=== PATIENT | male | born 1970 | race Caucasian/White ===

== ENCOUNTER 2022-02-03 16:32 | Emergency (ER) | payer BC ==
[2022-02-03 17:21] VITALS: RESP 18; TEMP 98.1
[2022-02-03] MEDS ORDERED: SODIUM CHLORIDE 0.9% 1,000 ML IV STA (21:00)
[2022-02-03] MEDS ORDERED: ONDANSETRON 4 MG/2 ML VIAL IVP STA (21:00)
[2022-02-03] MEDS ORDERED: HYDROmorphone 0.5 MG/0.5 ML SYRINGE IVP STA ×2 (21:00→23:03)
--- NOTE | 2022-02-03 21:14 | ED ---
Back Pain HPI - General Chief Complaint: Back Pain/Injury Stated Complaint: Abd pain Time Seen by Provider: 02/03/22 20:53 Source: patient, family, RN notes reviewed Limitations: no limitations - History of Present Illness Initial Comments: This is a 52-year-old male who presents emergency department for a kidney stone. Patient had a computed tomography scan earlier today ordered by his PCP for possible kidney stone, which revealed a 7 mm obstructing left ureteral stone. Pain is in the left flank and left lower quadrant, and has been present for 2 days. The pain occurs in waves, and when it does occur, he is curled up on the floor with nausea and vomiting. His primary care provider saw him yesterday and did start him on tramadol and Flomax. He states that he believes the Flomax was helping, however he has had no improvement with the tramadol. Patient and his request admission for lithotripsy management. MD Complaint: back pain (left flank) - Related Data Home Medications Medication Instructions Recorded Confirmed Escitalopram [Lexapro] 10 mg PO HS 02/03/22 02/03/22 Tamsulosin HCl [Flomax] 0.4 mg PO HS 02/03/22 02/03/22 traMADol HCl [Ultram] 50 mg PO BID 02/03/22 02/03/22 valACYclovir HCL [Valtrex] 1,000 mg PO HS 02/03/22 02/03/22 Previous Rx's Medication Instructions Recorded HYDROcodone/APAP 7.5-325MG [[place] 1 tab PO Q6HR PRN 3 Days #12 tab 02/03/22 7.5-325] Naproxen 500 mg PO BID PRN #20 tablet 02/03/22 Ondansetron Odt [Zofran Odt] 4 mg PO Q8HR PRN #20 tab 02/03/22 Allergies Allergy/AdvReac Type Severity Reaction Status Date / Time No Known Allergies Allergy Verified 02/03/22 22:04 Review of Systems ROS Statement: Those systems with pertinent positive or pertinent negative responses have been documented in the HPI. ROS Other: All systems not noted in ROS Statement are negative. Constitutional: Denies: fever, chills ENT: Denies: ear pain, throat pain Respiratory: Denies: cough, dyspnea Cardiovascular: Denies: chest pain, palpitations Gastrointestinal: Reports: abdominal pain, nausea, vomiting. Denies: diarrhea, constipation Genitourinary: Denies: urgency, dysuria Musculoskeletal: Reports: back pain Skin: Denies: rash Neurological: Denies: headache Past Medical History Additional Past Medical History / Comment(s): kidney stones History of Any Multi-Drug Resistant Organisms: None Reported Past Surgical History: No Surgical Hx Reported Past Psychological History: No Psychological Hx Reported Smoking Status: Never smoker Past Alcohol Use History: None Reported Past Drug Use History: None Reported General Exam Limitations: no limitations General appearance: alert, in no apparent distress Head exam: Present: atraumatic, normocephalic, normal inspection Respiratory exam: Present: normal lung sounds bilaterally. Absent: respiratory distress, wheezes, rales, rhonchi, stridor Cardiovascular Exam: Present: regular rate, normal rhythm, normal heart sounds. Absent: systolic murmur, diastolic murmur, rubs, gallop, clicks GI/Abdominal exam: Present: soft, normal bowel sounds. Absent: distended, tenderness, guarding, rebound, rigid Back exam: Present: CVA tenderness (L). Absent: CVA tenderness (R) Neurological exam: Present: alert, oriented X3, CN II-XII intact Psychiatric exam: Present: normal affect, normal mood Skin exam: Present: warm, dry, intact, normal color. Absent: rash Course Vital Signs 02/03/22 02/03/22 17:19 21:20 Temperature 98.1 F Pulse Rate 78 75 Respiratory 18 18 Rate Blood Pressure 132/85 129/77 O2 Sat by Pulse 99 99 Oximetry Medical Decision Making - Medical Decision Making This is a 52-year-old male who presents emergency department for an obstructing ureteral calculus. Calculus measures 7mm based on computed tomography scan obtained earlier today. Patient advised that he has approximately a 50% chance of passing this on its own, and given that it is in the distal ureter, he is close to passing this. Discussed case with Dr. Ash, who advised controlling patient's symptoms in the emergency department and discharging him home for outpatient follow up with urology, as they can do lithotripsy in the office. Discussed this with the patient and his , who are agreeable to this plan. Symptoms controlled with Zofran, Toradol, and Dilaudid in the emergency Depart ment. Given that the pharmacies are closed, will send patient home with a starter pack for Zofran, ibuprofen, and Tylenol #3. Rx for [place], naproxen, and Zofran and sent to the pharmacy to warehouse picker tomorrow. He is instructed to avoid taking naproxen and ibuprofen at the same time, and to decide which one works best for him. He will contact urology tomorrow for an outpatient appointment. Urine strainer sent home with the patient as well. Return precautions reviewed in depth, the patient is instructed to return to the emergency department with any new, worsening, or concerning symptoms. Patient verbalized understanding. This case was discussed in detail with the attending ED physician. Presentation, findings, and treatment plan discussed in detail as well. - Lab Data Result diagrams: 02/03/22 21:00 02/03/22 21:00 Lab Results 02/03/22 02/03/22 02/03/22 Range/Units 21:00 21:00 21:00 WBC 10.6 (3.8-10.6) k/uL RBC 4.72 (4.30-5.90) m/uL Hgb 14.5 (13.0-17.5) gm/dL Hct 44.2 (39.0-53.0) % MCV 93.8 (80.0-100.0) fL MCH 30.8 (25.0-35.0) pg MCHC 32.9 (31.0-37.0) g/dL RDW 12.9 (11.5-15.5) % Plt Count 266 (150-450) k/uL MPV 6.8 Neutrophils % 76 % Lymphocytes % 16 % Monocytes % 5 % Eosinophils % 1 % Basophils % 0 % Neutrophils # 8.1 H (1.3-7.7) k/uL Lymphocytes # 1.7 (1.0-4.8) k/uL Monocytes # 0.5 (0-1.0) k/uL Eosinophils # 0.1 (0-0.7) k/uL Basophils # 0.0 (0-0.2) k/uL Sodium 140 (137-145) mmol/L Potassium 4.4 (3.5-5.1) mmol/L Chloride 103 (98-107) mmol/L Carbon Dioxide 27 (22-30) mmol/L Anion Gap 10 mmol/L BUN 15 (9-20) mg/dL Creatinine 0.93 (0.66-1.25) mg/dL Est GFR (CKD-EPI)AfAm >90 (>60 ml/min/1.73 sqM) Est GFR (CKD-EPI)NonAf >90 (>60 ml/min/1.73 sqM) Glucose 101 H (74-99) mg/dL Calcium 9.6 (8.4-10.2) mg/dL Total Bilirubin 0.7 (0.2-1.3) mg/dL AST 32 (17-59) U/L ALT 26 (4-49) U/L Alkaline Phosphatase 72 (38-126) U/L Total Protein 8.3 H (6.3-8.2) g/dL Albumin 4.8 (3.5-5.0) g/dL Urine Color Light Yellow Urine Appearance Clear (Clear) Urine pH 5.5 (5.0-8.0) Ur Specific [place] 1.010 (1.001-1.035) Urine Protein Negative (Negative) Urine Glucose (UA) Negative (Negative) Urine Ketones Trace H (Negative) Urine Blood Moderate H (Negative) Urine Nitrite Negative (Negative) Urine Bilirubin Negative (Negative) Urine Urobilinogen <2.0 (<2.0) mg/dL Ur Leukocyte Esterase Negative (Negative) Urine RBC 3 (0-5) /hpf Urine WBC 3 (0-5) /hpf Urine Mucus Rare H (None) /hpf - Radiology Data Radiology results: report reviewed, image reviewed Disposition Clinical Impression: Renal calculus, left, Hydronephrosis concurrent with and due to calculi of kidney and ureter Disposition: HOME SELF-CARE Instructions (If sedation given, give patient instructions): Kidney Stones (ED), Renal Colic (ED), How to Strain Your Urine (ED) Additional Instructions: Return to the emergency department with any new, worsening, or concerning symptoms. Contact urology in the morning for outpatient follow-up. Take the [place] every 4-6 hours as needed for pain. Take the naproxen twice daily for pain. Take the Zofran as needed for nausea and vomiting. Prescriptions: Naproxen 500 mg PO BID PRN #20 tablet PRN Reason: Pain HYDROcodone/APAP 7.5-325MG [[place] 7.5-325] 1 tab PO Q6HR PRN 3 Days #12 tab PRN Reason: Pain Ondansetron Odt [Zofran Odt] 4 mg PO Q8HR PRN #20 tab PRN Reason: Nausea And Vomiting Is patient prescribed a controlled substance at d/c from ED?: Yes If prescribed controlled substance>3 days was MAPS reviewed?: Prescribed <3 Days Referrals: Roger Sam DO [Primary Care Provider] - 1-2 days Timoteo Irvin MD [STAFF PHYSICIAN] - 1-2 days
[2022-02-03] MEDS ORDERED: TAMSULOSIN 0.4 MG CAP.ER.24H PO STA (21:17)
[2022-02-03 22:02] LABS: ALT 26 U/L (4-49); AST 32 U/L (17-59); African American GFR (CKD) >90 (>60 ml/min/1.73 sqM); Albumin 4.8 g/dL (3.5-5.0); Alkaline Phosphatase 72 U/L (38-126); Anion Gap 10 mmol/L; Blood Urea Nitrogen 15 mg/dL (9-20); Calcium 9.6 mg/dL (8.4-10.2); Carbon Dioxide 27 mmol/L (22-30); Chloride 103 mmol/L (98-107); Glucose 101 mg/dL (74-99); Non-African American GFR(CKD) >90 (>60 ml/min/1.73 sqM); Potassium 4.4 mmol/L (3.5-5.1); Sodium 140 mmol/L (137-145); Total Bilirubin 0.7 mg/dL (0.2-1.3); Total Protein 8.3 g/dL (6.3-8.2)
[2022-02-03 22:08] LABS: Appearance,Urine Clear (Clear); Bilirubin,Urine Negative (Negative); Blood,Urine Moderate (Negative); Color,Urine Light Yellow; Glucose,Urine (UA) Negative (Negative); Ketones,Urine Trace (Negative); Leukocyte Esterase,Urine Negative (Negative); Mucus,Urine Rare /hpf; Nitrite,Urine Negative (Negative); PH, Urine 5.5 (5.0-8.0); Protein,Urine Negative (Negative); RBC,Urine 3 /hpf (0-5); Urobilinogen,Urine <2.0 mg/dL (<2.0); WBC,Urine 3 /hpf (0-5)
[2022-02-03 22:10] LABS: Basophils % (A) 0 %; Eosinophils # (A) 0.1 k/uL (0-0.7); Eosinophils % (A) 1 %; HCT 44.2 % (39.0-53.0); HGB 14.5 gm/dL (13.0-17.5); Lymphocytes # (A) 1.7 k/uL (1.0-4.8); Lymphocytes % (A) 16 %; MCH 30.8 pg (25.0-35.0); MCHC 32.9 g/dL (31.0-37.0); MCV 93.8 fL (80.0-100.0); Mean Platelet Volume 6.8; Monocytes # (A) 0.5 k/uL (0-1.0); Monocytes % (A) 5 %; Neutrophils # (A) 8.1 k/uL (1.3-7.7); Neutrophils % (A) 76 %; Platelet Count 266 k/uL (150-450); RBC 4.72 m/uL (4.30-5.90); RDW 12.9 % (11.5-15.5); WBC 10.6 k/uL (3.8-10.6)
[2022-02-03] MEDS ORDERED: IBUPROFEN 600 MG STARTER PACK 4 TAB BTL PO STA (22:47)
[2022-02-03] MEDS ORDERED: ONDANSETRON 4 MG ODT STARTER PACK 2 TAB BTL PO STA (22:47)
[2022-02-03] MEDS ORDERED: ACET/COD 300 MG/30 MG STARTER PACK 6 TAB BTL PO STA (22:47)
[2022-02-03] MEDS ORDERED: KETOROLAC 15 MG/ML 1 ML VIAL IVP STA (22:49)
[2022-02-03 23:05] VITALS: BP 129/77; PULSE 75
== END 2022-02-03 23:14 | disposition home or self-care (01) ==
LOC: EC 16:32
DX: N13.2 Hydronephrosis with renal and ureteral calculous obstruction (principal)
CPT/HCPCS: 36415; 80053; 85025; 81001; 96375; 96361; 99284; 96374; J2405; J1885; S0119; J1170

== ENCOUNTER → 2022-02-03 | Outpatient (CLI) | payer BC ==
--- NOTE | 2022-02-03 16:05 | CT ---
EXAMINATION TYPE: CT abdomen pelvis wo con DATE OF EXAM: 02/03/2022 COMPARISON: CT dated 06/06/2014 HISTORY: Left lower quadrant pain and Hematuria CT DLP: 881 mGycm Automated exposure control for dose reduction was used. TECHNIQUE: Helical acquisition of images was performed from the lung bases through the pelvis. FINDINGS: LUNG BASES: No significant abnormality is appreciated. LIVER/GB: No significant abnormality is appreciated. PANCREAS: No significant abnormality is seen. SPLEEN: No significant abnormality is seen. ADRENALS: No significant abnormality is seen. KIDNEYS: 7 mm obstructing stone is seen at the most inferior aspect of the left ureter just proximal to the left uterovesical junction, causing moderate left-sided hydroureter and hydronephrosis. Associ ated left perinephric and periureteric fat stranding. Scattered bilateral nonobstructing renal calcul i measuring up to 5.4 mm at the midpole of the left kidney. No right-sided hydroureter or hydronephro sis. Right medial renal cyst measuring up to 5.1 cm without gross suspicious feature. The urinary chino dder is not completely distended. Unremarkable prostate and seminal vesicles. FREE AIR: No free air is visualized RETROPERITONEAL ADENOPATHY: None visualized PELVIC ADENOPATHY: None visualized. OSSEOUS STRUCTURES: Questionable osteopenia. No gross aggressive bone lesion. BOWEL: Unremarkable nondistended stomach, duodenum and small bowel. Scattered uncomplicated colonic diverticulosis. Normal appendix. OTHER: No sizable ascites. Fat-containing umbilical hernia. Small bilateral fat-containing inguinal h ernias. IMPRESSION: Left distal ureteric 7 mm obstructing stone as detailed above. Associated infection cannot be exclude d, please correlate clinically and with urinalysis results. Other scattered bilateral nonobstructing renal calculi as detailed above. Further urology consultatio n can be considered. Other incidental findings as described above.
== END | disposition home or self-care (01) ==
LOC: RADCTMAIN 15:25
PROVIDERS: ATTEND Family Medicine
DX: N20.2 Calculus of kidney with calculus of ureter (principal)
CPT/HCPCS: 74176

== ENCOUNTER 2022-02-05 06:23 | Day surgery (SDC) | payer BC ==
--- NOTE | 2022-02-04 18:09 | P.HPIHPCON ---
History of Present Illness H&P Date: 02/04/22 This is a 52-year-old male with history of a 7 mm left-sided ureteral stone, and multiple nonobstructive stones. Ge is symptomatic from her stone. Option of ureteroscopy with holmium laser, versus ESWL versus medical expulsive therapy were discussed in detail. Patient was quite symptomatic, and wanted to proceed with surgical intervention, He agreed to proceed with Left-sided ureteroscopy with holmium laser. Discussed with her the risk which includes but not limited to bleeding, infection, injury to the ureter. Discussed also with her risk from anesthesia. He understood all the risk and agreed to proceed Consent for Procedure: I have explained the operation/procedure to the patient, including the risks, benefits, side effects, alternative therapies (including not receiving the proposed treatment or service), the likelihood of the patient achieving his/her goals, and potential recuperation problems for the procedure/sedation/analgesia, as well as any blood products, if indicated. I also explained to the patient the risks, benefits and side effects of the alternatives, as well as the risks related to not receiving the proposed procedure, care, treatment, or services. Past Medical History Additional Past Medical History / Comment(s): kidney stones History of Any Multi-Drug Resistant Organisms: None Reported Past Surgical History: No Surgical Hx Reported Past Psychological History: No Psychological Hx Reported Smoking Status: Never smoker Past Alcohol Use History: None Reported Past Drug Use History: None Reported Medications and Allergies Home Medications Medication Instructions Recorded Confirmed Type Escitalopram [Lexapro] 10 mg PO HS 02/03/22 02/03/22 History HYDROcodone/APAP 7.5-325MG [[place] 1 tab PO Q6HR PRN 3 Days #12 tab 02/03/22 Rx 7.5-325] Naproxen 500 mg PO BID PRN #20 tablet 02/03/22 Rx Ondansetron Odt [Zofran Odt] 4 mg PO Q8HR PRN #20 tab 02/03/22 Rx Tamsulosin HCl [Flomax] 0.4 mg PO HS 02/03/22 02/03/22 History traMADol HCl [Ultram] 50 mg PO BID 02/03/22 02/03/22 History valACYclovir HCL [Valtrex] 1,000 mg PO HS 02/03/22 02/03/22 History Allergies Allergy/AdvReac Type Severity Reaction Status Date / Time No Known Allergies Allergy Verified 02/03/22 22:04 Surgical - Exam - General no distress, moderate pain - Eyes normal ocular movement, no pale - ENT normal nares, normal mucosa - Respiratory normal expansion, normal respiratory effort - Abdomen Abdomen: soft, non tender - Psychiatric oriented to time, oriented to person, oriented to place Assessment and Plan Assessment: OR for left-sided ureteroscopy with holmium laser lithotripsy, stone basketing and stent insertion
--- NOTE | 2022-02-05 09:55 | XR ---
EXAMINATION TYPE: XR KUB DATE OF EXAM: 02/05/2022 Comparison: 06/06/[address] 02/03/2022 Clinical History: 52-year-old male N20.0 calculus Findings: Single mildly dilated small bowel loop left midabdomen probably transient measuring up to 4.2 cm. The re is a 7 mm calcification in the left side of the pelvis. Unchanged phlebolith in the right side of the pelvis. Faint calcification suggested in the left side of the abdomen measuring up to 6 mm. Mild to moderate stool in the right side of the abdomen. Air extends distally to the rectum. Impression: Redemonstrated 7 mm distal left ureteral calculus. A solitary dilated small bowel loop in the left mi d abdomen measuring 4.2 cm may reflect a regional ileus adjacent to the left kidney. Additional nonob structive left renal calculi measuring up to 6 mm.
[2022-02-05] MEDS ORDERED: LACTATED RINGERS 1,000 ML IV ONE ×2 (10:32→12:00)
[2022-02-05] MEDS ORDERED: ONDANSETRON 4 MG/2 ML VIAL ONE (10:43)
[2022-02-05] MEDS ORDERED: ONDANSETRON 4 MG/2 ML VIAL IVP ONE (11:01)
[2022-02-05] MEDS ORDERED: DEXAMETHASONE SOD PHOSPHATE 4 MG/ML 1 ML VIAL IVP ONE (11:02)
[2022-02-05] MEDS ORDERED: MIDAZOLAM 2 MG/2 ML VIAL IVP ONE (11:05)
[2022-02-05] MEDS ORDERED: PROPOFOL 10 MG/ML 20 ML VIAL IV ONE (11:11)
[2022-02-05] MEDS ORDERED: fentaNYL (PF) 50 MCG/ML 2 ML AMP ONE (11:11)
[2022-02-05] MEDS ORDERED: LIDOCAINE 2% INJ 20 MG/ML (2 ML VIAL) ONE (11:11)
[2022-02-05] MEDS ORDERED: ePHEDrine 50 MG/ML 1 ML VIAL ONE (11:11)
[2022-02-05] MEDS ORDERED: KETOROLAC 15 MG/ML 1 ML VIAL IVP ONE (12:40)
--- NOTE | 2022-02-05 12:41 | P.OP ---
Date of Procedure: 02/05/22 Preoperative Diagnosis: Left ureteral stone, renal stones Postoperative Diagnosis: Same Procedure(s) Performed: Cystoscopy, left ureteroscopy, holmium laser lithotripsy, stone basketing and stent insertion Implants: 6-[place] by 26 cm stent in the left ureter left on a string Anesthesia: [facility] Surgeon: Timoteo Irvin Estimated Blood Loss (ml): 5 Pathology: none sent Condition: stable Disposition: PACU Indications for Procedure: This is a 52-year-old male with history of a 7 mm left-sided ureteral stone, and multiple nonobstructive stones. He is symptomatic from her stone. Option of ureteroscopy with holmium laser, versus ESWL versus medical expulsive therapy were discussed in detail. Patient was quite symptomatic, and wanted to proceed with surgical intervention, He agreed to proceed with Left-sided ureteroscopy with holmium laser. Discussed with her the risk which includes but not limited to bleeding, infection, injury to the ureter. Discussed also with her risk from anesthesia. He understood all the risk and agreed to proceed Operative Findings: Left distal ureteral stone, multiple stones in the kidney, Description of Procedure: Patient brought to the operating room, general anesthesia was induced. He was prepped and draped in sterile fashion a placement dorsal lithotomy position. Cystoscopy fitted with 21-[place] sheath was inserted per urethra, cystoscopy was performed which showed no abnormality within the bladder. Attention was then carried to the left ureteral orifice which was intubated with a sensor wire. Next the semirigid ureteroscope was inserted per urethra, and advanced up the left ureteral orifice. A large stone was encountered in the distal ureter. Using the holmium laser the stone was fragmented into small fragments, sizable fragments were removed using the stone basket. At this time the ureteroscope was advanced all the way up to the mid ureter which showed no additional stones or injury to the ureter. Pullback ureteroscopy was performed which showed no sizable fragments or injury to the ureter. As the ureteroscope was withdrawn and a sensor wire was advanced through. Next a 1214 [place] access sheath was passed over the wire and into the proximal ureter. A flexible ureteroscope was advanced through the access sheath, renoscopy was performed which showed a large stone in the lower pole, an additional stone in the mid pole. Using the holmium laser the stones were fragmented into small fragments, sizable fragments were removed using the stone basket. Repeat renoscopy showed no sizable stones or injury to the kidney. Pullback ureteroscopy was performed which showed no ureteral stones or injury to ureter. As the ureteroscope was withdrawn and a sensor wire was advanced through. Next a ureteral stent was passed over the w shante, the proximal curl was visualized on fluoroscopy and distal curl was visualized using cystoscope. The bladder was emptied at the end of the case. The stent was left on a string and taped to the patient penis. Patient tolerated procedure well taken to recovery in stable condition [place] Report: Procedure Acuity: Stone Size and Location: 7 mm left distal ureter, stone in mid and lower pole Ureteral Dilation: no Ureteral Access Sheath Used: Yes Stone Sent for Analysis: yes All Stones/Fragments Were Removed with a Basket: yes Complications: No Preoperative Antibiotics Given: Yes Stent Placed: Yes If Stent Placed, Was String Left Attached: Yes If Stent Placed, When is it to be Removed: Office Discharge Medications: Toradol, flomax
[2022-02-05] MEDS ORDERED: HYDROmorphone 0.5 MG/0.5 ML SYRINGE IVP ONE ×2 (12:45→13:15)
[2022-02-05 12:46] VITALS: TEMP 97
[2022-02-05 12:48] VITALS: RESP 16
[2022-02-05 13:52] VITALS: BP 137/91; PULSE 76
--- NOTE | 2022-02-05 20:07 | FL ---
EXAMINATION TYPE: FL guidance operating room DATE OF EXAM: 02/05/2022 FLUOROSCOPY Fluoroscopy time of 20 seconds was used during urologic procedure for left ureteral stone.. 1 image/ s document/s the procedure.
== END 2022-02-05 14:21 | disposition home or self-care (01) ==
LOC: OR 06:23
PROVIDERS: ATTEND Urology
DX: N20.1 Calculus of ureter (principal); N20.0 Calculus of kidney; K21.9 Gastro-esophageal reflux disease without esophagitis; Z79.899 Other long term (current) drug therapy
CPT/HCPCS: 82365; 74018; 52356; C2625; C1894; C1769; J2250; J1100; J2405; J3010; J1885; J2704; J1170; J2001

== ENCOUNTER → 2022-03-05 | Outpatient (CLI) | payer BC ==
--- NOTE | 2022-03-05 15:42 | XR ---
EXAMINATION TYPE: XR KUB DATE OF EXAM: 03/05/2022 COMPARISON: 02/05/2022 INDICATION: Renal calculus post lithotripsy TECHNIQUE: Single view abdomen spine view FINDINGS: There is a normal bowel gas pattern. Psoas margins are normal. No suspicious renal or ureteral stones are evident. IMPRESSION: 1. Unremarkable Abdomen
== END | disposition home or self-care (01) ==
LOC: RADXRMAIN 15:00
PROVIDERS: ATTEND Urology
DX: N20.0 Calculus of kidney (principal)
CPT/HCPCS: 74018

== ENCOUNTER → 2023-05-13 | Outpatient (CLI) | payer BC ==
--- NOTE | 2023-05-13 15:26 | XR ---
EXAMINATION TYPE: XR chest 2V DATE OF EXAM: 05/13/2023 3:06 PM COMPARISON: None TECHNIQUE: XR chest 2V Frontal and lateral views of the chest. CLINICAL INDICATION:Male, 53 years old with history of [id number] CHEST PAIN,SOB; FINDINGS: Lungs/Pleura: Trace left pleural effusion with associated atelectasis. No focal consolidation or pneu mothorax. Pulmonary vascularity: Unremarkable. Heart/mediastinum: Cardiomediastinal silhouette is unremarkable. Musculoskeletal: No acute osseous pathology. IMPRESSION: Trace left pleural effusion with associated atelectasis.
== END | disposition home or self-care (01) ==
LOC: RADXRYALE 14:56
PROVIDERS: ATTEND Physician Assistant
DX: J90 Pleural effusion, not elsewhere classified (principal); J98.11 Atelectasis; R07.9 Chest pain, unspecified; R06.02 Shortness of breath
CPT/HCPCS: 71046